=== PATIENT | female | born 1995 ===

== ENCOUNTER 2022-01-14 06:05 | Day surgery (SDC) | payer OTHER ==
[2022-01-14] MEDS ORDERED: PERCOCET 5-3251 EACH PO (13:09)
== END 2022-01-14 13:35 | disposition home or self-care (01) ==
LOC: CIR.AMB 06:05
PROVIDERS: ATTEND Surgery
DX: K60.3 Anal fistula (principal); K62.0 Anal polyp; Z20.822 Contact with and (suspected) exposure to COVID-19